=== PATIENT | male | born 1950 | race Caucasian/White ===

== ENCOUNTER 2018-05-31 15:09 | Day surgery (SDC) | payer OTHER ==
[2018-05-31] MEDS ORDERED: LIDOCAINE 1% 2 ML INJ ID PRN (15:38)
[2018-05-31] MEDS ORDERED: LR 1,000 ML IV ONE (15:38)
--- NOTE | 2018-05-31 15:51 | PDANEPAE ---
ANE History of Present Illness here for colonoscopy ANE Past Medical History - Cardiovascular History Hx Hypertension: No Hx Arrhythmias: Yes Hx Chest Pain: No Hx Coronary Artery / Peripheral Vascular Disease: No Hx CHF / Valvular Disease: No Hx Palpitations: No Cardiovascular History Comment: venous insufficiency - Pulmonary History Hx COPD: No Hx Asthma/Reactive Airway Disease: No Hx Recent Upper Respiratory Infection: No Hx Oxygen in Use at Home: No Hx Sleep Apnea: Yes Sleep Apnea Screening Result - Last Documented: Positive Pulmonary History Comment: ashlee positive uses cpap - Neurologic History Hx Cerebrovascular Accident: No Hx Seizures: No Hx Dementia: No - Endocrine History Hx Diabetes: No - Renal History Hx Renal Disorders: Yes Renal History Comment: hx of prostate ca. "leaks a little bit after prostate surgery". followed by Dr. Nuno - Liver History Hx Hepatic Disorders: No - Neurological & Psychiatric Hx Hx Neurological and Psychiatric Disorders: Yes Neurological / Psychiatric History Comment: mild depression - Cancer History Hx Cancer: Yes Cancer History Comment: prostate - Congenital Disorder History Hx Congenital Disorders: Yes Congenital History Comment: cerebral palsy - GI History Hx Gastrointestinal Disorders: Yes Gastrointestinal History Comment: reflux - Other Health History Other Health History: non- healing venous stasis ulcers on BLE's, pt reports they are healing up now. wears glasses - Chronic Pain History Chronic Pain: No - Surgical History Prior Surgeries: prostate and hernia surgery ANE Review of Systems Review of Systems: - Exercise capacity METS (RN): 4 METS ANE Patient History - Allergies Allergies/Adverse Reactions: pollen extracts Allergy (Verified 05/18/18 16:27) - Home Medications Home Medications: Coumadin 05/18/18 [Last Taken Unknown] Lasix 05/18/18 [Last Taken Unknown] - NPO status NPO Status: no food or drink >8 hours - Anes Hx Anes Hx: no prior problems - Smoking Hx Smoking Status: Former smoker - Alcohol Use Alcohol Use: Rarely - Family Anes Hx Family Anes Hx: none Family Hx Anesthesia Complications: none ANE Labs/Vital Signs - Vital Signs Vital Signs: reviewed preoperatively; see RN documention for details Height: 190.5 cm Weight: 122.47 kg ANE Physical Exam - Airway Neck exam: FROM Mallampati Score: Class 2 Mouth exam: normal dental/mouth exam - Pulmonary Pulmonary: no respiratory distress, clear to auscultation - Cardiovascular Cardiovascular: regular rate and rhythym, no murmur, rub, or gallop - ASA Status ASA Status: III ANE Anesthesia Plan Anesthesia Plan: GA with mask Total IV Anesthesia: Yes
[2018-05-31 16:18] LABS: INR 1.51 (0.83-1.16); PROTIME(PATIENT) 17.5 SEC (12.0-15.0)
--- NOTE | 2018-05-31 16:45 | PDGENHP ---
History & Physical Chief Complaint: Surveillance colonoscopy History of Present Illness: Surveillance colonoscopy for a personal history of colon polyps Pertinent Past, Social, Family History: PMH: DVT. Colon polyps. Chronic anti- coagulation. Prostate cancer. SH: No Tob, No ETOH. FH: negative colon cancer Relevant Physical Exam: NAD. CTA B/L. RRR without m/r/g. GI soft. NABS. NT/ ND. surgical scar infraumbilica. Cardiorespiratory Assessment: ASA II. Colonoscopy with MAC/IV sedation
[2018-05-31] MEDS ORDERED: PROPOFOL/EMULSION 500 MG/50 ML BOTTLE IV ONE (16:49)
[2018-05-31] MEDS ORDERED: NALOXONE HCL 0.4 MG/ML INJ IVP PRN (17:31)
--- NOTE | 2018-05-31 17:41 | POSTANESTH ---
Post Anesthetic Evaluation Cardiovascular Status: Normal, Stable, Similar to Pre-Op Cond Respiratory Status: Normal, Stable, Similar to Pre-op Cond. Level of Consciousness/Mental Status: Can Participate in Eval, Alert and Oriented Pain Control: Adequate, Prn Tx Ordered Nausea/Vomiting Control: Adequate, Prn Tx Ordered Complications Possibly Related to Anesthesia: None Noted
--- NOTE | 2018-05-31 17:44 | GIREPORT ---
[facility] - Endoscopy Department Patient Name: Jarocho Ojeda Procedure Date: 05/31/2018 4:46 PM Patient Type: Outpatient Attending MD/ ER Physician: Kalia David MD Procedure: Colonoscopy Indications: High risk colon cancer surveillance: Personal history of colonic polyps Providers: Kalia David MD Medicines: Propofol per Anesthesia Complications: No immediate complications. Description of Procedure: After obtaining informed consent, the scope was passed under direct vis ion. Throughout the procedure, the patient's blood pressure, pulse, and oxyg en saturations were monitored continuously. The Colonoscope with irrigatio n channel was introduced through the anus and advanced to the cecum, identified by appendiceal orifice and ileocecal valve. The colonoscopy was technically difficult and complex due to significant looping, a tortuou s colon and the patient's body habitus. The patient tolerated the procedu re well. The quality of the bowel preparation was good. The ileocecal valv e, appendiceal orifice, and rectum were photographed. Findings: The digital rectal exam findings include surgically absent prostate. Pertinent negatives include normal sphincter tone and no palpable recta l lesions. A 6 mm polyp was found in the cecum. The polyp was sessile. The polyp w as removed with a cold biopsy forceps. Resection and retrieval were comple te. A 5 mm polyp was found in the transverse colon. The polyp was sessile. The polyp was removed with a cold biopsy forceps. Resection and retrieval w ere complete. A 9 mm polyp was found in the transverse colon. The polyp was sessile. The polyp was removed with a cold snare. Resection and retrieval were compl ete. The colon (entire examined portion) was significantly tortuous. Post-polypectomy tattoo in the descending colon. No evidence of residua l polyp. Estimated Blood Loss: Estimated blood loss: none. Post Op Diagnosis: - A surgically absent prostate found on digital rectal exam. - One 6 mm polyp in the cecum, removed with a cold biopsy forceps. Rese cted and retrieved. - One 5 mm polyp in the transverse colon, removed with a cold biopsy forceps. Resected and retrieved. - One 9 mm polyp in the transverse colon, removed with a cold snare. Resected and retrieved. - Tortuous colon. - Post-polypectomy tattoo in the descending colon. No residual polyp. Recommendation: - Await pathology results. - Repeat colonoscopy in 5 years for surveillance. - Resume Coumadin (warfarin) at prior dose tomorrow. Refer to referring physician for further adjustment of therapy. - Resume previous diet. - Continue present medications. - Patient has a contact number available for emergencies. The signs and symptoms of potential delayed complications were discussed with the pat ient. Return to normal activities tomorrow. Written discharge instructions we re provided to the patient. - Thank you for allowing me to be involved in the care of your patient. Attending Participation: I personally performed the entire procedure without the assistance of a fellow, resident or surg ical phlebotomy lab assistant. Kalia David MD Kalia David MD 05/31/2018 5:44:21 PM This report has been signed electronicallyDavid MD Joann Number of Addenda: 0 Note Initiated On: 05/31/2018 4:46 PM Total Procedure Duration Time 0 hours 26 minutes 5 seconds [email or web address]
[2018-05-31 18:42] VITALS: BP 110/68
== END 2018-05-31 18:55 | disposition home or self-care (01) ==
LOC: FSGY 15:09
PROVIDERS: ATTEND Internal Medicine Gastroenterology
DX: Z12.11 Encounter for screening for malignant neoplasm of colon (principal); D12.0 Benign neoplasm of cecum; D12.3 Benign neoplasm of transverse colon; I87.313 Chronic venous hypertension (idiopathic) with ulcer of bilateral lower extremity; G47.33 Obstructive sleep apnea (adult) (pediatric); Z79.01 Long term (current) use of anticoagulants; Z86.010 Personal history of colon polyps; Z87.891 Personal history of nicotine dependence; Z85.46 Personal history of malignant neoplasm of prostate
CPT/HCPCS: J2704